=== PATIENT | female | born 1980 | race Hispanic/Latino ===

== ENCOUNTER 2021-06-22 21:56 | Emergency (ER) | payer SELFPAY ==
[~2021-06-22] VITALS: Ht 170.2 cm; Wt 77.1 kg
[2021-06-22] MEDS ORDERED: KETOROLAC TROMETHAMINE 60 MG/2 ML VIAL IM ONE (22:30)
[2021-06-22] MEDS ORDERED: ONDANSETRON HCL 4 MG ORAL DISINTEGRATING TAB PO ONE (22:30)
== END 2021-06-22 23:18 | disposition home or self-care (01) ==
LOC: ER 22:00
DX: R51.9 Headache, unspecified (principal); I10 Essential (primary) hypertension; R11.2 Nausea with vomiting, unspecified; M54.2 Cervicalgia
CPT/HCPCS: 70450; 93005; 99283; J1885; Q0162